=== PATIENT | female | born 1950 | race Caucasian/White ===

== ENCOUNTER 2017-07-18 10:18 | Emergency (ER) | payer MEDICARE ==
[~2017-07-18] VITALS: Ht 165.1 cm; Wt 98.2 kg
[~2017-07-18 10:18] MED LIST: APIX5TAB3 PO; ASPI-1264 PO; BENA20TA2 PO; DICL75TA PO; DIPH25CA6 PO; FLEC100T2 PO; HYDR-569 PO; OXYC-145 PO; POTA2TAB17 PO; PRAV40TA3 PO
[2017-07-18 10:52] LABS: BASOPHILS % (AUTO) 0.2 % (0-1); EOSINOPHILS # (AUTO) 0.2 X10'3 (0-0.9); HEMATOCRIT 45.7 % (35.0-45.0); LYMPHOCYTES # (AUTO) 2.8 X10'3 (1.1-4.8); LYMPHOCYTES % (AUTO) 37.4 % (21-51); MEAN CORPUSCULAR HEMOGLOBIN 29.1 PG (27.0-31.0); MEAN CORPUSCULAR HGB CONC 32.9 % (33.0-36.5); MEAN CORPUSCULAR VOLUME 88.4 FL (78-98); MEAN PLATELET VOLUME 7.3 FL (7.4-10.4); MONOCYTES # (AUTO) 0.4 X10'3 (0-0.9); MONOCYTES % (AUTO) 4.7 % (2-12); NEUTROPHILS # (AUTO) 4.1 X10'3 (1.8-7.7); NEUTROPHILS % (AUTO) 54.7 % (42-75); PLATELET COUNT 320 X10'3 (140-440); RED BLOOD COUNT 5.17 X10'6 (4.20-5.60); RED CELL DISTRIBUTION WIDTH 13.9 % (11.5-14.5); WHITE BLOOD COUNT 7.6 X10'3 (4.5-11.0)
[2017-07-18 11:02] LABS: PARTIAL THROMBOPLASTIN TIME 28 SECONDS (22-32); PROTHROMBIN TIME 10.6 SECONDS (9.0-12.0)
[2017-07-18 11:06] LABS: ALANINE AMINOTRANSFERASE 33 U/L (12-78); ALKALINE PHOSPHATASE 54 IU/L (46-116); ANION GAP 10 (8-16); ASPARTATE AMINO TRANSFERASE 17 U/L (10-37); BILIRUBIN,TOTAL 0.7 MG/DL (0.1-1.0); BLOOD UREA NITROGEN 18 MG/DL (7-18); BUN/CREATININE RATIO 22.5 (6.6-38.0); CALCIUM 9.5 MG/DL (8.5-10.1); CHLORIDE 105 MMOL/L (99-107); GLUCOSE 101 MG/DL (70-104); POTASSIUM 3.9 MMOL/L (3.5-5.1); SODIUM 144 MMOL/L (135-145); TOTAL CARBON DIOXIDE 29.2 MMOL/L (24-32); TOTAL PROTEIN 8.1 G/DL (6.4-8.2); eGFR 71 ML/MIN
[2017-07-18] MEDS ORDERED: ketorolac trometh. 30mg/ml inj. IM ONE (11:40)
[2017-07-18 12:00] LABS: HEMOGLOBIN A1C 5.6 % (4.5-6.2)
[2017-07-18 12:16] LABS: CLARITY,URINE CLEAR (Clear); COLOR,URINE YELLOW (Yellow); GLUCOSE, URINE NEGATIVE (Neg); KETONES,URINE NEGATIVE (Neg); LEUKOCYTE ESTERASE ,URINE NEGATIVE (Neg); NITRITES, URINE NEGATIVE (Neg); OCCULT BLOOD,URINE SMALL (Neg); PROTEIN,URINE NEGATIVE (Neg); UROBILINOGEN,URINE 0.2 E.U/dL (0.2-1.0)
[2017-07-18 12:17] LABS: UA COLLECTION TYPE CLN CATCH MIDSTREAM
[2017-07-18 12:21] LABS: BACTERIA,URINE NONE SEEN /HPF (Neg); MUCUS STRANDS FEW /LPF (Neg); RBC,URINE 0-2 /HPF (0-2); SQUAMOUS EPITHELIAL CELL,UR FEW /LPF (FEW); WBC,URINE 0-4 /HPF (0-4)
[2017-07-18 13:04] VITALS: BP 159/83
== END 2017-07-18 13:21 | disposition home or self-care (01) ==
LOC: ER 10:19
DX: I10 Essential (primary) hypertension (principal); R51 Headache; I48.91 Unspecified atrial fibrillation; Z79.82 Long term (current) use of aspirin; Z88.5 Allergy status to narcotic agent
CPT/HCPCS: 36415; 71045; 80053; 81001; 82043; 83036; 83880; 84439; 84443; 84484; 85025; 85610; 85730; 93005; 96372; 99285; J1885

== ENCOUNTER 2018-09-24 13:42 | Emergency (ER) | payer MEDICARE ==
[~2018-09-24] VITALS: Ht 162.6 cm; Wt 88.6 kg
[~2018-09-24 13:42] MED LIST changes: -BENA20TA2 PO; +BENA20TA82 PO; +HYDR-4383 PO; -HYDR-569 PO
[2018-09-24 13:54] VITALS: BP 133/81
[2018-09-24] MEDS ORDERED: ketorolac tromethamine 15mg/ml inj. IM ONE (14:40)
== END 2018-09-24 15:00 | disposition home or self-care (01) ==
LOC: ER 13:43
DX: G89.29 Other chronic pain (principal); M54.2 Cervicalgia; I10 Essential (primary) hypertension; Z88.2 Allergy status to sulfonamides; Z88.8 Allergy status to other drugs, medicaments and biological substances; Z79.899 Other long term (current) drug therapy; Z79.82 Long term (current) use of aspirin; Z60.2 Problems related to living alone
CPT/HCPCS: 96372; 99283; J1885

== ENCOUNTER 2019-08-06 14:43 | Emergency (ER) | payer MEDICARE ==
[~2019-08-06] VITALS: Ht 160 cm; Wt 90.0 kg
[~2019-08-06 14:43] MED LIST changes: +DICL-212 PO; -DICL75TA PO; +DIPH25CA52 PO; -DIPH25CA6 PO
[2019-08-06 14:52] VITALS: BP 188/83
[2019-08-06] MEDS ORDERED: ketorolac tromethamine 15mg/ml inj. IM ONE (15:20)
== END 2019-08-06 15:40 | disposition home or self-care (01) ==
LOC: ER 14:43
DX: M76.61 Achilles tendinitis, right leg (principal); I10 Essential (primary) hypertension; M19.90 Unspecified osteoarthritis, unspecified site; Z88.5 Allergy status to narcotic agent; Z88.8 Allergy status to other drugs, medicaments and biological substances; Z88.6 Allergy status to analgesic agent; Z79.82 Long term (current) use of aspirin; Z79.899 Other long term (current) drug therapy
CPT/HCPCS: 96372; 99283; J1885

== ENCOUNTER 2019-09-08 20:24 | Emergency (ER) | payer MEDICARE ==
[~2019-09-08] VITALS: Ht 162.6 cm; Wt 88.0 kg
--- NOTE | 2019-09-08 20:36 | NUR ---
Dr Kimball at triage to eval pt
--- NOTE | 2019-09-08 20:45 | NUR ---
Alan santiago in [facility] - 09/08/19 at [address]
--- NOTE | 2019-09-08 20:55 | NUR ---
pt to CT
[2019-09-08] MEDS ORDERED: LIDOcaine 1% W/epiNEPHrine 1:100,000 20ml vial SQ ONE (21:35)
[2019-09-08 22:40] VITALS: BP 163/83
== END 2019-09-08 22:43 | disposition home or self-care (01) ==
LOC: ER 20:25
DX: S01.112A Laceration without foreign body of left eyelid and periocular area, initial encounter (principal); S09.90XA Unspecified injury of head, initial encounter; R58 Hemorrhage, not elsewhere classified; I10 Essential (primary) hypertension; M19.90 Unspecified osteoarthritis, unspecified site; Z98.890 Other specified postprocedural states; Z60.2 Problems related to living alone; Y93.01 Activity, walking, marching and hiking; W01.198A Fall on same level from slipping, tripping and stumbling with subsequent striking against other object, initial encounter; Y92.89 Other specified places as the place of occurrence of the external cause; Y99.8 Other external cause status
CPT/HCPCS: 12001; 12011; 70450; 99284

== ENCOUNTER 2020-03-23 17:33 | Emergency (ER) | payer MEDICARE ==
[~2020-03-23] VITALS: Ht 162.6 cm; Wt 91.0 kg
[2020-03-23 18:31] VITALS: BP 166/83
--- NOTE | 2020-03-23 19:11 | NUR ---
Pt. not in bed for EDP to examine. Call out placed to reach out to pt. Voice message left.
== END 2020-03-23 20:47 | disposition left against medical advice (07) ==
LOC: ER 17:34
DX: I10 Essential (primary) hypertension (principal); M19.90 Unspecified osteoarthritis, unspecified site; Z98.890 Other specified postprocedural states; Z88.5 Allergy status to narcotic agent; Z88.8 Allergy status to other drugs, medicaments and biological substances; Z79.01 Long term (current) use of anticoagulants; Z79.82 Long term (current) use of aspirin; Z53.21 Procedure and treatment not carried out due to patient leaving prior to being seen by health care provider
CPT/HCPCS: 93005

== ENCOUNTER 2021-08-29 09:43 | Emergency (ER) | payer MEDICARE ==
[~2021-08-29] VITALS: Ht 162.6 cm; Wt 86.4 kg
[2021-08-29 09:47] VITALS: BP 217/94
[2021-08-29] MEDS ORDERED: triamcinolone acetonide 40mg/ml inj IM ONE (10:25)
[2021-08-29] MEDS ORDERED: ketorolac trometh. 30mg/ml inj. IM ONE (10:25)
[2021-08-29] MEDS ORDERED: HYDR-3972 PO (10:26)
== END 2021-08-29 10:52 | disposition home or self-care (01) ==
LOC: ER 09:44
DX: M54.41 Lumbago with sciatica, right side (principal); G89.29 Other chronic pain; I10 Essential (primary) hypertension; M19.90 Unspecified osteoarthritis, unspecified site; Z60.2 Problems related to living alone; Z98.890 Other specified postprocedural states; Z88.8 Allergy status to other drugs, medicaments and biological substances; Z88.1 Allergy status to other antibiotic agents; Z88.6 Allergy status to analgesic agent; Z79.82 Long term (current) use of aspirin; Z79.899 Other long term (current) drug therapy
CPT/HCPCS: 96372; 99284; J1885; J3301

== ENCOUNTER 2023-05-22 19:04 | Emergency (ER) | payer MEDICARE ==
[~2023-05-22] VITALS: Ht 162.6 cm; Wt 89.7 kg
[2023-05-22 19:16] VITALS: TEMP 98.9
[2023-05-22 21:11] VITALS: BP 205/91; PULSE 85; RESP 18; O2SAT 95
[2023-05-22] MEDS ORDERED: amLODIPine 5mg tablet PO ONE (22:00)
== END 2023-05-22 22:30 | disposition left against medical advice (07) ==
LOC: ER 19:04
DX: K08.89 Other specified disorders of teeth and supporting structures (principal); Z53.21 Procedure and treatment not carried out due to patient leaving prior to being seen by health care provider
CPT/HCPCS: 99281; 99283

== ENCOUNTER 2023-05-24 09:19 | Emergency (ER) | payer MEDICARE ==
[~2023-05-24] VITALS: Ht 165.1 cm; Wt 81.8 kg
[2023-05-24 09:27] VITALS: BP 190/87; PULSE 84; RESP 20; TEMP 98.6; O2SAT 97
[2023-05-24] MEDS ORDERED: ketorolac trometh. 30mg/ml inj. IM ONE (10:20)
[2023-05-24] MEDS ORDERED: AMOX-580 PO (10:25)
[2023-05-24] MEDS ORDERED: NAPR-56 PO (10:25)
== END 2023-05-24 10:41 | disposition home or self-care (01) ==
LOC: ER 09:20
DX: K04.7 Periapical abscess without sinus (principal); I10 Essential (primary) hypertension; M19.90 Unspecified osteoarthritis, unspecified site; Z88.5 Allergy status to narcotic agent; Z88.8 Allergy status to other drugs, medicaments and biological substances; Z79.899 Other long term (current) drug therapy; Z79.82 Long term (current) use of aspirin
CPT/HCPCS: 96372; 99283; J1885

== ENCOUNTER 2023-06-23 11:29 | Emergency (ER) | payer MEDICARE ==
[~2023-06-23] VITALS: Ht 162.6 cm; Wt 87.9 kg
[~2023-06-23 11:29] MED LIST changes: +NAPR-56 PO
[2023-06-23 11:48] VITALS: BP 203/83; PULSE 75; RESP 18; TEMP 97.8; O2SAT 98
[2023-06-23 12:34] LABS: BASOPHILS % (AUTO) 0.2 % (0-1); EOSINOPHILS # (AUTO) 0.2 X10'3 (0-0.9); EOSINOPHILS % (AUTO) 2.7 % (0-6); HEMATOCRIT 45.6 % (35.0-45.0); LYMPHOCYTES # (AUTO) 2.2 X10'3 (1.1-4.8); LYMPHOCYTES % (AUTO) 30.9 % (21-51); MEAN CORPUSCULAR HEMOGLOBIN 30.3 PG (27.0-31.0); MEAN CORPUSCULAR HGB CONC 32.9 g/dL (33.0-36.5); MEAN CORPUSCULAR VOLUME 92.1 FL (78-98); MEAN PLATELET VOLUME 7.6 FL (7.4-10.4); MONOCYTES # (AUTO) 0.5 X10'3 (0-0.9); NEUTROPHILS # (AUTO) 4.3 X10'3 (1.8-7.7); NEUTROPHILS % (AUTO) 59.2 % (42-75); PLATELET COUNT 275 X10'3 (140-440); RED BLOOD COUNT 4.95 X10'6 (4.20-5.60); RED CELL DISTRIBUTION WIDTH 14.2 % (11.5-14.5); WHITE BLOOD COUNT 7.2 X10'3 (4.5-11.0)
[2023-06-23 12:50] LABS: ALBUMIN 3.9 G/DL (3.4-5.0); ANION GAP 7 (8-16); BILIRUBIN,TOTAL 0.5 MG/DL (0.1-1.0); BLOOD UREA NITROGEN 13 MG/DL (7-18); BUN/CREATININE RATIO 15.5 (10.0-20.0); CALCIUM 9.4 MG/DL (8.5-10.1); CHLORIDE 106 MMOL/L (99-107); CREATININE 0.84 MG/DL (0.40-0.90); GLUCOSE 100 MG/DL (70-104); POTASSIUM 3.8 MMOL/L (3.5-5.1); SODIUM 143 MMOL/L (135-145); TOTAL CARBON DIOXIDE 30.2 MMOL/L (24-32); TOTAL PROTEIN 7.7 G/DL (6.4-8.2); eCRCL 51 ML/MIN; eGFR 66 ML/MIN
[2023-06-23 12:51] LABS: ALANINE AMINOTRANSFERASE 21 U/L (12-78); ALKALINE PHOSPHATASE 52 IU/L (46-116); ASPARTATE AMINO TRANSFERASE 18 U/L (10-37)
[2023-06-23 12:53] LABS: PRO BRAIN NATRIURETIC PEPTIDE 552 PG/ML (0-125)
== END 2023-06-23 16:39 | disposition left against medical advice (07) ==
LOC: ER 11:30
DX: R07.89 Other chest pain (principal); Z53.21 Procedure and treatment not carried out due to patient leaving prior to being seen by health care provider
CPT/HCPCS: 36415; 71045; 80053; 83880; 84484; 85025; 93005; 99281